=== PATIENT | female | born 1975 | race Caucasian/White ===

== ENCOUNTER 2016-07-25 10:08 | Emergency (ER) | payer OTHER ==
[2016-07-25] MEDS ORDERED: IOPAMIDOL 300 (61%) 150 ML VIAL IV ONE (10:09)
[2016-07-25 11:13] LABS: ABSOLUTE NEUTROPHIL COUNT 3.8 K/mm3 (1.8-7.7); BASO % 0.6 % (0.2-1.0); EOS % 0.7 % (0.9-2.9); HEMATOCRIT 43.7 % (37.0-47.0); HEMOGLOBIN 14.4 gm/l (12.0-16.0); IMM NEUT% 0.2 % (0-1); LYMPH # 1.2 (1.0-4.8); LYMPH % 22.6 % (15-45); MEAN CELL VOLUME 87.9 fl (81.0-99.0); MEAN PLATELET VOLUME 11.4 fl (7.4-10.4); MONO # 0.3 (0.0-0.8); MONO % 5.5 % (4-12); NEUT % 70.4 % (43-75); PLATELET COUNT 243 K/mm3 (130-400); RED CELL DISTRIBUTION WIDTH 12.5 % (11.5-14.5)
[2016-07-25 11:27] LABS: ALB/GLOB RATIO 1.7 (>1.0); ALBUMIN 4.9 gm/dL (3.5-5.7); CALCIUM 9.8 mg/dL (8.6-10.3)
[2016-07-25] MEDS ORDERED: LACTATED RINGERS 1,000 ML ONE ×2 (11:35→14:17)
[2016-07-25] MEDS ORDERED: MORPHINE SULFATE 4 MG/ML SYRINGE ONE ×2 (11:35→14:17)
[2016-07-25 12:09] LABS: SPECIFIC GRAVITY 1.015 (1.001-1.030); URINE BILIRUBIN NEGATIVE (NEGATIVE); URINE BLOOD TRACE (NEGATIVE); URINE GLUCOSE (UA) NEGATIVE (NEGATIVE); URINE LEUKOCYTE ESTERASE NEGATIVE (NEGATIVE); URINE NITRITE NEGATIVE (NEGATIVE); URINE PROTEIN NEGATIVE (NEGATIVE); URINE UROBILINOGEN NORMAL (0-1 mg/dl)
[2016-07-25 12:13] LABS: URINE APPEARANCE CLEAR; URINE COLOR YELLOW
[2016-07-25 12:15] LABS: HCG,QUALITATIVE URINE NEGATIVE
[2016-07-25 12:27] LABS: URINE BACTERIA FEW; URINE EPITHELIAL CELLS FEW /hpf; URINE WBC NEG /hpf
--- NOTE | 2016-07-25 14:03 | US ---
Exam: Gallbladder ultrasound COMPARISON: 07/11/2016 INDICATION: Right upper quadrant pain. FINDINGS: Gallbladder ultrasound was obtained. Gallbladder is moderately distended. Solitary mobile stone is identified. There is no gallbladder wall thickening or pericholecystic fluid. 6 mm gallbladder wall polyp is again appreciated. Common bile duct normal at 2 mm. IMPRESSION: Stable appearance of the gallbladder dating back to 07/11/2016. There is cholelithiasis without sonographic features of acute cholecystitis or biliary ductal dilation. 6 mm polyp is again noted. Report was uploaded to the EMR at 1357 hours 07/25/2016.
--- NOTE | 2016-07-25 15:03 | CT ---
Exam Type: ABD/PELVIS W/ CON Date and Time: 07/25/2016 2:28 PM Clinical information: Right upper quadrant abdominal pain. Elevated lipase. Comparison: Ultrasound earlier on the same day Technique: Contiguous axial 4 mm images were obtained from the lung bases through the pelvis after the uneventful IV administration of 80 cc of [id number]. Sagittal and coronal reformations with high resolution lung algorithm images were also obtained at this time. CT DI: 7.0 DLP 312.3 FINDINGS: Lung base :No abnormality is identified at the lung bases. Visualized heart:There is no pericardial effusion. LIVER: within normal limits. BILE DUCTS: normal caliber. GALLBLADDER: Gallstone is noted in the bladder neck, as seen on prior ultrasound. PANCREAS: within normal limits. SPLEEN: within normal limits. ADRENALS: within normal limits. KIDNEYS: within normal limits. Stomach and small BOWEL: Normal caliber. Large bowel: Air and stool are noted within the large bowel. Appendix is normal. Diverticulosis without diverticulitis or abscess formation is present. LYMPH NODES: No enlarged mesenteric lymph nodes. PERITONEUM: no ascites or free air, no fluid collection. VESSELS: within normal limits RETROPERITONEUM: within normal limits. ABDOMINAL WALL: within normal limits. Bladder: Normal. Uterus and adnexa: Present. Left ovarian cyst is noted measuring approximately 2 x 1.8 cm on axial image 64. Physiologic fluid is noted within the pelvis. BONES: within normal limits. IMPRESSION: Gallstone is again noted within the gallbladder, as seen on prior ultrasound. No evidence of acute inflammatory process is noted within the abdomen or pelvis. Pancreas is normal. Close clinical and radiographic follow-up are recommended. Incidental findings as above. Report was uploaded to the electronic medical record at approximately 1500 hours on 07/25/2016.
[2016-07-25] MEDS ORDERED: ONDANSETRON 4 MG/2ML 2 ML VIAL ONE (15:48)
== END 2016-07-25 17:21 | disposition home or self-care (01) ==
LOC: ED 10:08
DX: K80.20 Calculus of gallbladder without cholecystitis without obstruction (principal); R10.9 Unspecified abdominal pain; R11.10 Vomiting, unspecified